=== PATIENT | female | born 1935 | race Caucasian/White ===

== ENCOUNTER 2019-05-07 18:03 | Emergency (ER) | payer MEDICARE ==
[~2019-05-07] VITALS: Ht 144.8 cm; Wt 47.2 kg
[2019-05-07 18:34] LABS: BASOPHILS # (AUTO) 0.1 /CMM (0.0-0.2); BASOPHILS % (AUTO) 0.6 % (0.0-2.0); EOSINOPHILS % (AUTO) 0.2 % (0.0-6.0); HEMATOCRIT 34 % (33-45); HEMOGLOBIN 11.4 g/dL (11.5-14.8); LYMPHOCYTES # (AUTO) 1.4 /CMM (0.8-4.8); LYMPHOCYTES % (AUTO) 12.2 % (20.0-44.0); MEAN CORPUSCULAR HGB CONC 34 g/dl (31.0-36.0); MEAN CORPUSCULAR VOLUME 95 fL (82-100); MONOCYTES # (AUTO) 0.8 /CMM (0.1-1.30); MONOCYTES % (AUTO) 6.7 % (2.0-12.0); NEUTROPHILS # (AUTO) 9.3 /CMM (1.8-8.9); NEUTROPHILS % (AUTO) 80.3 % (43.0-81.0); PLATELET COUNT (AUTO) 313 /CMM (150-450); RED BLOOD CELL COUNT(AUTO) 3.59 MIL/uL (4.0-5.2); WHITE BLOOD COUNT (AUTO) 11.6 K/uL (4.3-11.0)
[2019-05-07 19:05] LABS: CALCIUM, SERUM 9.1 mg/dL (8.5-10.1); CREATININE 0.8 mg/dL (0.6-1.3); POTASSIUM 4.1 mmol/L (3.5-5.1)
[2019-05-07] MEDS ORDERED: IBUPROFEN 400 MG TABLET PO ONE (20:30)
[2019-05-07] MEDS ORDERED: HYDROCODONE/APAP 5/325MG 1 EACH TABLET PO ONE (20:30)
[2019-05-07] MEDS ORDERED: IBUPROFEN 400 MG TABLET ONE (20:31)
[2019-05-07] MEDS ORDERED: HYDROCODONE/APAP 5/325MG 1 EACH TABLET ONE (20:31)
--- NOTE | 2019-05-07 21:24 | NUR ---
PATIENT DISCHARGED HOME IN STABLE CONDITION. -SOB NOTED. AMBULATORY W/WALKER. DOES NOT COMPLAIN OF PAIN AT THIS TIME.
[2019-05-07 21:29] VITALS: BP 122/77
== END 2019-05-07 21:30 | disposition home or self-care (01) ==
LOC: ER 18:08
DX: M54.5 Low back pain (principal); I10 Essential (primary) hypertension; E78.5 Hyperlipidemia, unspecified; F32.9 Major depressive disorder, single episode, unspecified; W01.0XXA Fall on same level from slipping, tripping and stumbling without subsequent striking against object, initial encounter; Y93.89 Activity, other specified; Y92.89 Other specified places as the place of occurrence of the external cause; Y99.8 Other external cause status
CPT/HCPCS: 36415; 72110-TC; 72170-TC; 80048-TC; 85025-TC

== ENCOUNTER 2019-06-05 05:46 | Inpatient (IN) | payer MEDICARE ==
[~2019-06-05] VITALS: Ht 152.4 cm; Wt 49.9 kg
--- NOTE | 2019-06-05 06:43 | NUR ---
SESAR FROM HOME WITH SON TO ER BED 4. AAOX4. NO RESP DISTRESS NOTED. [place] C/O L LATERAL KNEE PAIN. PER SON, PT HAD A FALL BACK IN DECEMEBER AND SINCE THEN SHE HSA BEEN HAVING PAIN AT THAT LOCATION. PT WENT TO HER MD AND RECEIVED A SHOT ON THE KNEE OF TRAUMEELZEEL/TORADOL. ROM NOTED LIMITED D/T PAIN. PAIN IS RATE AT 5/10. AWAITING MD FOR EVAL.
--- NOTE | 2019-06-05 06:56 | NUR ---
DR. CURRY AT THE BED SIDE
[2019-06-05] MEDS ORDERED: KETOROLAC TROMETHAMINE INJ 30 MG/ML VIAL ONE (07:16)
[2019-06-05] MEDS ORDERED: HYDROCODONE/APAP 5/325MG 1 EACH TABLET ONE (07:16)
[2019-06-05] MEDS ORDERED: HYDROCODONE/APAP 5/325MG 1 EACH TABLET PO ONE (07:30)
[2019-06-05] MEDS ORDERED: KETOROLAC TROMETHAMINE INJ 30 MG/ML VIAL IM ONE (07:30)
--- NOTE | 2019-06-05 09:17 | NUR ---
PAGED [facility].
--- NOTE | 2019-06-05 09:27 | NUR ---
CALLED NURSING SUP FOR M/S BED.
[2019-06-05 09:34] LABS: BASOPHILS % (AUTO) 0.3 % (0.0-2.0); EOSINOPHILS % (AUTO) 0.1 % (0.0-6.0); HEMATOCRIT 32 % (33-45); HEMOGLOBIN 10.7 g/dL (11.5-14.8); LYMPHOCYTES # (AUTO) 1.2 /CMM (0.8-4.8); LYMPHOCYTES % (AUTO) 9.5 % (20.0-44.0); MEAN CORPUSCULAR HGB CONC 33 g/dl (31.0-36.0); MEAN CORPUSCULAR VOLUME 96 fL (82-100); MONOCYTES # (AUTO) 1.3 /CMM (0.1-1.30); MONOCYTES % (AUTO) 10.5 % (2.0-12.0); NEUTROPHILS # (AUTO) 10.1 /CMM (1.8-8.9); NEUTROPHILS % (AUTO) 79.6 % (43.0-81.0); PLATELET COUNT (AUTO) 315 /CMM (150-450); RED BLOOD CELL COUNT(AUTO) 3.34 MIL/uL (4.0-5.2); WHITE BLOOD COUNT (AUTO) 12.7 K/uL (4.3-11.0)
[2019-06-05] MEDS ORDERED: VENL37.591 PO (09:38)
[2019-06-05] MEDS ORDERED: SIMV-49 PO (09:38)
[2019-06-05] MEDS ORDERED: ATEN25TA PO (09:38)
[2019-06-05] MEDS ORDERED: CITA20TA16 PO (09:38)
[2019-06-05 09:41] LABS: CALCIUM, SERUM 9.3 mg/dL (8.5-10.1); CREATININE 0.7 mg/dL (0.6-1.3); POTASSIUM 3.1 mmol/L (3.5-5.1)
--- NOTE | 2019-06-05 11:06 | NUR ---
REPORT GIVEN TO ARMANDO SOLO FOR EMILY.
[2019-06-05] MEDS ORDERED: ONDANSETRON HCL/PF 4 MG/2 ML VIAL IVP PRN (11:30)
[2019-06-05] MEDS ORDERED: MAGNESIUM HYDROXIDE 30 ML UDC PO PRN (11:30)
[2019-06-05] MEDS ORDERED: MAG HYDROX/AL HYDROX/SIMETH 30 ML UDC PO PRN (11:30)
[2019-06-05] MEDS ORDERED: ZOLPIDEM TARTRATE 5 MG TABLET PO PRN (11:30)
[2019-06-05] MEDS ORDERED: Z GUARD REMEDY 2 OZ OINT TP PRN (11:30)
[2019-06-05] MEDS ORDERED: ACETAMINOPHEN 325 MG TABLET PO PRN (11:30)
--- NOTE | 2019-06-05 11:36 | NUR ---
M/S RN NOTES PATIENT RECEIVED AWAKE, ALERT AND ORIENTED X4, FAMILY AT BEDSIDE. PATIENT IN NO RESPIRATORY DISTRESS, C/O PAIN ON THE LT KNEE BUT TOLERABLE AT THIS TIME WITH INACTIVITY. PATIENT'S SKIN WARM TO TOUCH, IV ACCESS SITE INTACT AND PATENT. SKIN ASSESSED NO SKIN BREAKDOWN. PATIENT'S BELONGINGS ACCOUNTED FOR, BELONGINGS LIST SIGNED AND PUT IN CHART. BED ON LOWEST LOCKED POSITION, CALL LIGHT WITHIN REACH. ADMISSION ORDERS WILL CARRY OUT. WILL CONTINUE TO MONITOR.
[2019-06-05 12:00] VITALS: BP 122/60
[2019-06-05] MEDS: HYDROCODONE/APAP 5/325MG 1 EACH TABLET PO PRN (13:59)
[2019-06-05 16:00] VITALS: BP 101/65
--- NOTE | 2019-06-05 18:45 | NUR ---
M/S RN NOTES PATIENT RESTING IN BED, NO RESPIRATORY DISTRESS, NO C/O PAIN AT THIS TIME. PATIENT'S SKIN WARM TO TOUCH, IV ACCESS SITE INTACT AND PATENT. PATIENT'S NEEDS ATTENDED, BED ON LOWEST LOCKED POSITION, CALL LIGHT WITHIN REACH. WILL ENDORSE TO ONCOMING NURSE.
--- NOTE | 2019-06-05 19:30 | NUR ---
MS RN OPENING NOTES PATIENT ASLEEP UPON ARRIVAL, EASY TO AWAKEN. A/O X 3. ON ROOM AIR. NO S/S OF ACUTE RESPIRATORY DISTRESS AND NO COMPLAINTS OF PAIN AT THIS TIME. IV PRESENT ON RIGHT FOREARM, SIZE 24, INTACT & PATENT, HEP LOCKED. PATIENT ABLE TO VERBALIZE NEEDS. BED LOCKED, SEMI-LANDIN'S POSITION, SIDE RAILS X2, CALL LIGHT WITHIN REACH. WILL CONTINUE TO ENDORSE.
[2019-06-05 20:00] VITALS: BP 107/45
--- NOTE | 2019-06-05 20:30 | NUR ---
MS RN NOTES IV KCL 10MEQ/50ML NOT ADMINISTERED DUE TO UNAVAILABILITY OF IV POLE & PUMP
[2019-06-05] MEDS: POTASSIUM CL. PREMIX PERIPHER. 50 ML IV SCH (22:16)
--- NOTE | 2019-06-05 22:16 | NUR ---
MS RN NOTE IV KCL 10MEQ/50ML STARTED ON RIGHT AC, RUNNING 50ML/HR
--- NOTE | 2019-06-05 22:45 | NUR ---
MS RN NOTES PATIENT COMPLAINING OF BURNING SENSATION ON IV SITE. DECREASED KCL RATE TO 35 ML/HR.
[2019-06-06] MEDS: POTASSIUM CL. PREMIX PERIPHER. 50 ML IV SCH ×3 (01:05→05:14)
[2019-06-06] MEDS: HYDROCODONE/APAP 5/325MG 1 EACH TABLET PO PRN ×2 (02:35→17:42)
--- NOTE | 2019-06-06 02:35 | NUR ---
MS RN NOTES PATIENT COMPLAINING OF PAIN NEAR HER IV SITE ON THE LEFT ARM WHERE IV KCL 10MEQ/50ML IS RUNNING, RATED 7/10. PER PATIENT'S REQUEST ADMINISTERED PRN NORCO 5/325. VITAL SIGNS - BP: 135/72 HR: 74 RR: 18. CALL LIGHT WITHIN REACH. WILL CONTINUE TO MONITOR.
--- NOTE | 2019-06-06 06:35 | NUR ---
MS RN CLOSING NOTES PATIENT AWAKE AND RESTING IN BED. A/O X4. ON ROOM AIR. NO S/S OF ACUTE RESPIRATORY DISTRESS. PATIENT COMPLAINS OF PAIN UPON REPOSITIONING IN BED. IV PRESENT ON RIGHT AC, SIZE 20, INTACT & PATENT, HEP LOCKED; IV ON LEFT AC, SIZE 22, INTACT & PATENT, HEP LOCKED. BED LOCKED, LOW-LANDIN'S POSITION, SIDE RAILS X2, CALL LIGHT WITHIN REACH. WILL ENDORSE TO DAY SHIFT NURSE TO FOLLOW PLAN OF CARE.
[2019-06-06 07:02] LABS: BASOPHILS % (AUTO) 0.4 % (0.0-2.0); HEMATOCRIT 31 % (33-45); HEMOGLOBIN 10.6 g/dL (11.5-14.8); LYMPHOCYTES # (AUTO) 1.9 /CMM (0.8-4.8); MEAN CORPUSCULAR HGB CONC 34 g/dl (31.0-36.0); MEAN CORPUSCULAR VOLUME 97 fL (82-100); MONOCYTES % (AUTO) 11.4 % (2.0-12.0); NEUTROPHILS # (AUTO) 5.9 /CMM (1.8-8.9); NEUTROPHILS % (AUTO) 66.2 % (43.0-81.0); PLATELET COUNT (AUTO) 299 /CMM (150-450); WHITE BLOOD COUNT (AUTO) 8.9 K/uL (4.3-11.0)
[2019-06-06 07:06] LABS: BILIRUBIN,TOTAL 0.4 mg/dL (0.2-1.0); CALCIUM, SERUM 8.5 mg/dL (8.5-10.1); CREATININE 0.7 mg/dL (0.6-1.3); MAGNESIUM 1.9 mg/dL (1.8-2.4); PHOSPHORUS 3.2 mg/dL (2.5-4.9); POTASSIUM 3.8 mmol/L (3.5-5.1); TOTAL PROTEIN, SERUM 6.1 g/dL (6.4-8.2)
--- NOTE | 2019-06-06 07:30 | NUR ---
MS RN OPENING NOTES RECEIVED PATIENT IN BED RESTING COMFORTABLY IN MODERATE HIGH BACK REST. ALERT AND ORIENTED X 3. ABLE TO MAKE NEEDS KNOWN. NO SIGNS OF DISTRESS NOTED AT THIS TIME. IV ACCESS ON LEFT AC #22, RIGHT AC#20. PATENT AND INTACT, SAFETY MEASURES IN PLACE, BED IN LOW AND LOCKED POSITION. CALL LIGHT WITH IN EASY REACH. WILL CONTINUE TO MONITOR ACCORDINGLY
[2019-06-06 08:00] VITALS: BP 136/71
[2019-06-06 16:00] VITALS: BP 142/85
--- NOTE | 2019-06-06 18:34 | NUR ---
MS RN CLOSING NOTES PATIENT IN BED RESTING COMFORTABLY IN MODERATE HIGH BACK REST. ALERT AND ORIENTED X 3. ABLE TO MAKE NEEDS KNOWN. NO SIGNS OF DISTRESS NOTED THROUGHOUT THE SHIFT. IV ACCESS ON LEFT AC #22, RIGHT AC#20. PATENT AND INTACT, SAFETY MEASURES IN PLACE, BED IN LOW AND LOCKED POSITION. CALL LIGHT WITH IN EASY REACH. WILL ENDORSE TO DAIRY MANUFACTURING TECHNOLOGIST NURSE FOR EMILY.
--- NOTE | 2019-06-06 19:30 | NUR ---
MS RN OPENING NOTES PATIENT AWAKE IN BED UPON ARRIVAL. FAMILY PRESENT AT THE BEDSIDE. A/O X4. ON ROOM AIR. NO COMPLAINT OF PAIN OR SOB AT THIS TIME. IV PRESENT ON LEFT AC, SIZE 22 & RIGHT AC, SIZE 20, BOTH INTACT & PATENT, HEP LOCKED. BED LOCKED, SIDE RAILS X2, CALL LIGHT WITHIN REACH. WILL CONTINUE TO MONITOR.
[2019-06-06 20:00] VITALS: BP 116/69
[2019-06-07 00:35] VITALS: BP 135/79
--- NOTE | 2019-06-07 00:50 | NUR ---
MS RN NOTES FOUND PATIENT ON HER KNEES AT THE BEDSIDE AT 0030. CHARGE NURSE NOTIFIED. PATIENT DENIES HITTING HER HEAD; STATES ONLY SLIGHT LEFT KNEE PAIN. PATIENT DISORIENTED AND NEEDED VERBAL REORIENTATION TO TIME AND DAY. NO WOUNDS AND/OR INJURIES FOUND ON PATIENT. TASHI ROGERSRETE NOTIFIED AT 0045. LEFT KNEE X-RAY ORDERED. VITAL SIGNS - BP: 135/79 HR: 105 RR: 18 SPO2: 96 ON ROOM AIR TEMP: 98.8. BED LOCKED, ALARM ON, SIDE RAILS X2, SEMI-LANDIN'S POSITION, CALL LIGHT WITHIN REACH. WILL CONTINUE TO MONITOR PATIENT AT THE BEDSIDE.
--- NOTE | 2019-06-07 06:55 | NUR ---
MS RN CLOSING NOTES PATIENT AWAKE AND RESTING IN BED. A/O X 3-4. ON ROOM AIR. NO COMPLAINTS OF SOB OR PAIN AT THIS TIME. IV PRESENT ON LEFT AC, SIZE 22 & RIGHT AC, SIZE 20, BOTH HEP LOCKED. BED LOCKED, ALARM ON, SIDE RAILS X2, CALL LIGHT WITHIN REACH. WILL ENDORSE TO DAY SHIFT NURSE TO FOLLOW PLAN OF CARE.
[2019-06-07] MEDS: HYDROCODONE/APAP 5/325MG 1 EACH TABLET PO PRN (07:10)
--- NOTE | 2019-06-07 07:15 | NUR ---
MS RN NOTES PATIENT IN BED ALERT ORIENTED X 3. NO ACUTE DISTRESS NOTED. BREATHING UNLABORED. NO SOB NOTED. IV ACCESS PATENT AND INTACT, NO REDNESS, NO SWELLING. SAFETY MEASURES IN PLACE. CALL LIGHT WITHIN REACH. WILL CONTINUE TO MONITOR ACCORDINGLY.
[2019-06-07 08:00] VITALS: BP 120/79
[2019-06-07] MEDS: CITALOPRAM HYDROBROMIDE 20 MG TABLET PO SCH (08:58)
[2019-06-07] MEDS: ATENOLOL 25 MG TABLET PO SCH (08:58)
[2019-06-07] MEDS: VENLAFAXINE XR 37.5 MG CAP.SR.24H PO SCH (08:58)
[2019-06-07 16:00] VITALS: BP 129/66
[2019-06-07] MEDS: SIMVASTATIN 20 MG TABLET PO SCH (17:20)
--- NOTE | 2019-06-07 19:00 | NUR ---
MS RN NOTES PATIENT IN BED ALERT ORIENTED X 3. NO ACUTE DISTRESS NOTED. BREATHING UNLABORED. NO SOB NOTED. IV ACCESS PATENT AND INTACT, NO REDNESS, NO SWELLING. NEEDS ATTENDED AND ANTICIPATED. SAFETY MEASURES IN PLACE. CALL LIGHT WITHIN REACH. WILL ENDORSE TO NIGHT NURSE FOR CONTINUITY OF CARE.
[2019-06-07 20:00] VITALS: BP 132/65
--- NOTE | 2019-06-07 20:46 | NUR ---
MS RN OPENING NOTES PATIENT RECEIVED RESTING IN BED A/O X 3. STABLE ON RA WITH BREATHING EVEN AND UNLABORED, NO SOB NOTED. NO SIGNS OF ACUTE DISTRESS. NO CURRENT COMPLAINTS OF PAIN OR DISCOMFORT. IV LOCATED ON L AC #22 AND r AC #20 SL. SAFETY PRECAUTIONS IN PLACE WITH BED IN LOWEST POSITION, CALL LIGHT WITHIN REACH, BREAKS ON, AND SIDE RAILS UP X2. WILL CONTINUE TO MONITOR.
--- NOTE | 2019-06-08 06:35 | NUR ---
MS RN CLOSING NOTES PATIENT CURRENTLY IN BED SLEEPING, A/O X 3. STABLE ON RA WITH BREATHING EVEN AND UNLABORED, NO SOB NOTED. NO SIGNS OF ACUTE DISTRESS. NO CURRENT COMPLAINTS OF PAIN OR DISCOMFORT/ IV LOCATED ON L AC AND R AC BOTH S/L. PATIENT WAS KEPT CLEAN AND DRY THROUGHOUT THE NIGHT. ALL NEEDS ATTENDED TO. SAFETY PRECAUTIONS IN PLACE WITH BED IN LOWEST POSITION, BREAKS ON, SIDE RAILS UP X2, AND CALL LIGHT WITHIN REACH. WILL ENDORSE TO ONCOMING SHIFT ABOUT EMILY.
[2019-06-08 08:00] VITALS: BP 142/82
--- NOTE | 2019-06-08 08:00 | NUR ---
RN NOTES RECEIVED PATIENT IN THE BED A/PX3, ROOM AIR, NO ACUTR RESPIRATORY DISTRESS, PATIENT WAS COMPLANING OF PAIN ON LEFT KNEE , BUT REFUSED PAIN MEDICATION AT THIS TIME, ALSO WAS COMPLAINING OF NERVOUSNESS. ADMINISTERED SCHEDULED MEDICATION, V/S STABLE. PATIENT USING DIAPER, IV ACCESS ON LEFT AC AREA INTACT, CALL LIGHT WITHIN TO REACH. CONTINUED MONITORING.
[2019-06-08] MEDS: ATENOLOL 25 MG TABLET PO SCH (10:26)
[2019-06-08] MEDS: VENLAFAXINE XR 37.5 MG CAP.SR.24H PO SCH (10:26)
[2019-06-08] MEDS: CITALOPRAM HYDROBROMIDE 20 MG TABLET PO SCH (10:26)
--- NOTE | 2019-06-08 11:00 | NUR ---
RN NOTES PATIENT SEEN [facility] PT, PATIENT REFUSED TO WALK BECAUSE OF PAIN, AND UNSTABLE TO STAND UP.
[2019-06-08 16:00] VITALS: BP 138/81
[2019-06-08] MEDS: SIMVASTATIN 20 MG TABLET PO SCH (17:17)
--- NOTE | 2019-06-08 18:00 | NUR ---
RN NOTES PATIENT IN THE BED EATING DINNER, ADMINISTERED SCHEDULED MEDICATION, V/S STABLE, REFUSED PAIN MEDICATION. CALL LIGHT WITHIN TO REACH. ENDORSED ONCOMING NURSE FOLLOW PLAN OF CARE.
--- NOTE | 2019-06-08 19:00 | NUR ---
ARMANDO cullen opening notes Received Pt from morning nurse. Pt is alert and orientedX3. Pt is resting in bed comfortably. Respiration is normal. no SOB. No S/S of distress noted. Peripheral IV sites at LAC# 22 is clean, intact, patent and SL and IV sites at RAC# 20 is clean, intact, patent and SL. Safety precautions is maintained. Bed at low position, brakes locked, side rails upX3 and call light is within reach. Will endorse to morning nurse for EMILY. Addendum: 06/09/19 at 0814 by OLINDA NUNO RN Will continue to monitor
[2019-06-08 20:00] VITALS: BP 122/79
[2019-06-08] MEDS: HYDROCODONE/APAP 5/325MG 1 EACH TABLET PO PRN ×2 (20:16)
[2019-06-08 20:32] VITALS: BP 122/79
--- NOTE | 2019-06-09 06:40 | NUR ---
RN medsurg closing notes Pt is resting in bed comfortably. Respiration is normal. No SOB. No S/S of distress noted. Peripheral IV sites is clean, intact and patent. VS is stable. Kept Pt clean, dry and comfortable. All needs met and attended. Safety precautions is maintained. Bed at low position, brakes locked, side rails upX3 and call light is within reach. Will endorse to morning nurse for EMILY.
[2019-06-09 08:00] VITALS: BP 134/67
--- NOTE | 2019-06-09 08:00 | NUR ---
RN NOTES RECEIVED PATIENT IN THE BED A/OX3, ROOM AIR, NO ACUTE RESPIRATORY DISTRESS, PATIENT WAS COMPLAINING OF PAIN ON LEFT KNEE 6/10 PER PAIN SCALE. ADMINISTERED SCHEDULED MEDICATION, V/S STABLE. PATIENT USING DIAPER, IV ACCESS ON LEFT AC AREA INTACT, CALL LIGHT WITHIN TO REACH. CONTINUED MONITORING.
[2019-06-09 08:55] VITALS: BP 134/67
[2019-06-09] MEDS: ATENOLOL 25 MG TABLET PO SCH (08:55)
[2019-06-09] MEDS: VENLAFAXINE XR 37.5 MG CAP.SR.24H PO SCH (08:56)
[2019-06-09] MEDS: HYDROCODONE/APAP 5/325MG 1 EACH TABLET PO PRN (08:56)
[2019-06-09] MEDS: CITALOPRAM HYDROBROMIDE 20 MG TABLET PO SCH (08:56)
--- NOTE | 2019-06-09 08:56 | NUR ---
RN NOTES ADMINISTERED NARCO 5/325 MG PO PRN FOR LEFT KNEE PAIN 10/28 PER PATIENT REQUEST, V/S TAKEN BP 134/67, P-100, R-18. CONTINUED MONITORING.
[2019-06-09] MEDS ORDERED: CELECOXIB 100 MG CAPSULE PO SCH (09:00)
--- NOTE | 2019-06-09 10:00 | NUR ---
RN NOTES PATIENT WILL DISCHARGE TO THE SNF SHORT AMOUNT OF TIME FOR PT, PER HOSPITALIST ORDER.
--- NOTE | 2019-06-09 16:22 | NUR ---
automotive internet sales consultant notes PATIENT DISCHARGE AT THIS TIME GOING SNF FOR SHORT AMOUNT OF TIME FOR PT. PATIENT A/O X3 WITH CONFUSION, REFUSED PAIN AT THIS TIME. NO ACUTE RESPIRATORY DISTRESS, V/S STABLE. MED RECONCILIATION AND DISCHARGE ORDER REVIEWED AND EXPLAINED TO PATIENT AND FAMILY. REPORT GIVEN SNF ARMANDO MAY. RN VERBALIZED UNDERSTANDING, BELONGING WITH THE PATIENT . PATIENT SIGN PAPERWORK. PATIENT [facility] BY AMBULANCE. FAMILY NEXT TO THE BED.
== END 2019-06-09 17:29 | DRG 558 ==
LOC: ER 05:46 → MED 11:02
PROVIDERS: ADMIT Internal Medicine; ATTEND Internal Medicine
DX: M65.9 Synovitis and tenosynovitis, unspecified (principal); M17.12 Unilateral primary osteoarthritis, left knee; D63.8 Anemia in other chronic diseases classified elsewhere; Y92.9 Unspecified place or not applicable; E78.5 Hyperlipidemia, unspecified; F41.9 Anxiety disorder, unspecified; F32.9 Major depressive disorder, single episode, unspecified; E87.6 Hypokalemia; I10 Essential (primary) hypertension; Z90.49 Acquired absence of other specified parts of digestive tract; Z79.899 Other long term (current) drug therapy; D72.829 Elevated white blood cell count, unspecified
CPT/HCPCS: 36415; 73564-TC; 73700-TC; 73721-TC; 80048-TC; 80053-TC; 80061-TC; 83735-TC; 84100-TC; 85025-TC; 87081-TC; 97110-TC; 97116-TC; 97530-TC; G0378; J1885; J3480; J7030

== ENCOUNTER 2019-06-17 02:42 | Emergency (ER) | payer MEDICARE ==
[~2019-06-17] VITALS: Ht 149.9 cm; Wt 46.7 kg
[~2019-06-17 02:42] MED LIST: ATEN25TA PO; CITA20TA16 PO; SIMV-49 PO; VENL37.591 PO
--- NOTE | 2019-06-17 03:02 | NUR ---
BIB automotive accessory installer FOR EVALUATION OF L EYEBROW LACERATION AND L FACIAL PAIN S/P "FOUND ON THE FLOOR 30 MIN SCIENCE LIAISON". PT DOES NOT REMEMBER WHAT HAPPENED. A, OX2. -N/V . WILL CONT TO MONITOR ,
--- NOTE | 2019-06-17 03:22 | NUR ---
DR HYMAN AT THE BED SIDE
[2019-06-17] MEDS ORDERED: LIDOCAINE 1%-EPI 1:100,000 20 ML VIAL ONE (03:29)
[2019-06-17] MEDS ORDERED: SODIUM BICARBONATE 5 ML VIAL ONE (03:29)
[2019-06-17] MEDS ORDERED: CEPHALEXIN MONOHYDRATE 500 MG CAPSULE PO ONE ×2 (04:57→05:00)
[2019-06-17] MEDS ORDERED: TDAP [DIPH/PERTUSSIS/TET] 0.5 ML VIAL IM ONE ×2 (04:57→06:00)
--- NOTE | 2019-06-17 05:31 | NUR ---
CALLED [facility] AND ARRANGED TRANSPORTATION BACK TO THE [facility]. ETA [phone]
--- NOTE | 2019-06-17 05:35 | NUR ---
CALLED SNF AND GAVE REPORT RE PT'S ETA
[2019-06-17] MEDS ORDERED: ACETAMINOPHEN ES 500 MG TABLET ONE (06:23)
[2019-06-17] MEDS ORDERED: ACETAMINOPHEN ES 500 MG TABLET PO ONE (06:30)
--- NOTE | 2019-06-17 07:02 | NUR ---
REPORT GIVEN TO photoengraver FROM [facility]. PT WAS D/C'D BACK TO THE FACILITY IN STABLE CONDITION. D/C PAPERS AND RX GIVEN TO THE PT W/ UNDERSTANDING. PT WAS PICKED UP VIA [facility] IN STABLE CONDITION .
[2019-06-17 07:04] VITALS: BP 148/85
== END 2019-06-17 07:04 | disposition home or self-care (01) ==
LOC: ER 02:43
DX: S01.81XA Laceration without foreign body of other part of head, initial encounter (principal); I10 Essential (primary) hypertension; E78.5 Hyperlipidemia, unspecified; F32.9 Major depressive disorder, single episode, unspecified; Z90.49 Acquired absence of other specified parts of digestive tract; Z79.899 Other long term (current) drug therapy; W06.XXXA Fall from bed, initial encounter; Y93.89 Activity, other specified; Y92.89 Other specified places as the place of occurrence of the external cause; Y99.8 Other external cause status
CPT/HCPCS: 12011; 70450; 90471; 90715; 99284; A6403; J3490 ×2

== ENCOUNTER 2020-11-23 10:25 | Outpatient (CLI) | payer MEDICARE | END 2020-11-23 23:59 | disposition home or self-care (01) | LOC: WOU 10:25 | PROVIDERS: ATTEND Podiatrist Foot & Ankle Surgery | DX: L60.2 Onychogryphosis (principal); B35.1 Tinea unguium; R60.0 Localized edema; Z79.82 Long term (current) use of aspirin | CPT/HCPCS: G0463 ==

== ENCOUNTER 2023-06-12 10:01 | Inpatient (IN) | payer MEDICARE ==
[~2023-06-12] VITALS: Ht 154.9 cm; Wt 45.8 kg
[~2023-06-12 10:01] MED LIST changes: +AMOX-430 PO; +DOCU-141 PO; +SENN-18 PO; +VENL150C58 PO; -VENL37.591 PO
[2023-06-12] MEDS: IV NS 0.9% 1,000 ML BAG IV ONE (10:26)
[2023-06-12 11:06] LABS: CALCIUM, SERUM 8.8 mg/dL (8.5-10.1); CARBON DIOXIDE 22 mmol/L (21-32); CHLORIDE 99 mmol/L (98-107); CREATININE 0.8 mg/dL (0.6-1.3); GLUCOSE 128 mg/dL (74-106); PARTIAL THROMBOPLASTIN TIME 26.3 SEC (24.3-34.3); POTASSIUM 3.7 mmol/L (3.5-5.1); PROTHROMBIN TIME 10.6 SECS (9.2-11.1); SODIUM SERUM 131 mmol/L (136-145); UREA NITROGEN, BLOOD 14 mg/dL (7-18)
[2023-06-12 11:13] LABS: ALANINE AMINOTRANSFERASE 72 U/L (12-78); ALBUMIN 3.4 g/dL (3.4-5.0); ALKALINE PHOSPHATASE 62 U/L (46-116); ASPARTATE AMINOTRANSFERASE 85 U/L (15-37); BILIRUBIN,DIRECT 0.1 mg/dL (0.0-0.2); BILIRUBIN,TOTAL 0.3 mg/dL (0.2-1.0); TOTAL PROTEIN, SERUM 7.2 g/dL (6.4-8.2)
[2023-06-12 11:24] LABS: BASOPHILS % (AUTO) 0.5 % (0.0-2.0); HEMATOCRIT 35 % (33-45); HEMOGLOBIN 12.1 g/dL (11.5-14.8); LYMPHOCYTES # (AUTO) 1.3 K/uL (0.8-4.8); MEAN CORPUSCULAR HEMOGLOBIN 32 PG (26.0-33.0); MEAN CORPUSCULAR HGB CONC 34 g/dl (31.0-36.0); MEAN CORPUSCULAR VOLUME 93 fL (82-100); MONOCYTES # (AUTO) 0.6 K/uL (0.1-1.30); MONOCYTES % (AUTO) 9.4 % (2.0-12.0); NEUTROPHILS # (AUTO) 4.1 K/uL (1.8-8.9); NEUTROPHILS % (AUTO) 68.1 % (43.0-81.0); PLATELET COUNT (AUTO) 229 K/uL (150-450); RED BLOOD CELL COUNT(AUTO) 3.79 MIL/uL (4.0-5.2); RED CELL DISTRIBUTION WIDTH 13.4 % (11.5-15.0)
[2023-06-12] MEDS ORDERED: DOCU100C36 PO (12:58)
[2023-06-12] MEDS ORDERED: PAXLOVID PO (12:58)
[2023-06-12 13:01] LABS: APPEARANCE,URINE SLIGHTLY CLOUDY (CLEAR); BILIRUBIN,URINE NEGATIVE (NEGATIVE); BLOOD, URINE 1+ Ery/uL (NEGATIVE); COLOR,URINE YELLOW (YELLOW); KETONES,URINE NEGATIVE (NEGATIVE); LEUKOCYTE ESTERASE ,URINE NEGATIVE (NEGATIVE); NITRITE, URINE NEGATIVE (NEGATIVE); PROTEIN,URINE 1+ mg/dl (NEGATIVE); UGLUCOSE NEGATIVE (NEGATIVE)
[2023-06-12 13:10] LABS: ADD URINE CULTURE NO; BACTERIA,URINE Rare /HPF (None Seen); SQUAMOUS EPITHELIAL CELL,UR Moderate /HPF (None Seen); WBC,URINE 0-2 /HPF (0-3)
[2023-06-12] MEDS ORDERED: MAG HYDROX/AL HYDROX/SIMETH 30 ML UDC PO PRN (15:30)
[2023-06-12] MEDS ORDERED: ACETAMINOPHEN 325 MG TABLET PO PRN (15:30)
[2023-06-12] MEDS ORDERED: Z GUARD REMEDY 4 OZ OINT TP PRN (15:30)
[2023-06-12] MEDS ORDERED: MAGNESIUM HYDROXIDE 30 ML UDC PO PRN (15:30)
[2023-06-12] MEDS ORDERED: ONDANSETRON HCL/PF 4 MG/2 ML VIAL IVP PRN (15:30)
[2023-06-12] MEDS: DOCUSATE SODIUM 100 MG CAPSULE PO SCH (17:41)
[2023-06-12] MEDS: ENOXAPARIN SODIUM 30 MG/0.3 ML DISP.SYRIN SQ SCH (17:43)
[2023-06-12] MEDS: IV NS 0.9% 1,000 ML IV PRN (19:37)
[2023-06-12 20:00] VITALS: BP 104/49; TEMP 97.6; O2SAT 92
[2023-06-13] VITALS: BP 105/59; TEMP 97.9; O2SAT 94
[2023-06-13 04:00] VITALS: BP 96/52; TEMP 98.2; O2SAT 97
[2023-06-13 07:10] LABS: BASOPHILS % (AUTO) 0.7 % (0.0-2.0); EOSINOPHILS % (AUTO) 0.2 % (0.0-6.0); HEMATOCRIT 32 % (33-45); HEMOGLOBIN 10.8 g/dL (11.5-14.8); LYMPHOCYTES # (AUTO) 1.4 K/uL (0.8-4.8); LYMPHOCYTES % (AUTO) 35.7 % (20.0-44.0); MEAN CORPUSCULAR HEMOGLOBIN 32 PG (26.0-33.0); MEAN CORPUSCULAR HGB CONC 34 g/dl (31.0-36.0); MEAN CORPUSCULAR VOLUME 94 fL (82-100); MONOCYTES # (AUTO) 0.6 K/uL (0.1-1.30); MONOCYTES % (AUTO) 15.6 % (2.0-12.0); NEUTROPHILS # (AUTO) 1.9 K/uL (1.8-8.9); NEUTROPHILS % (AUTO) 47.8 % (43.0-81.0); PLATELET COUNT (AUTO) 198 K/uL (150-450); RED BLOOD CELL COUNT(AUTO) 3.38 MIL/uL (4.0-5.2); RED CELL DISTRIBUTION WIDTH 13.4 % (11.5-15.0)
[2023-06-13 08:00] VITALS: BP_SYST 101; BP_SYST 107; BP_DIAS 54; BP_DIAS 57; BP_DIAS 67; TEMP 97.9; O2SAT 100; O2SAT 95
[2023-06-13 08:09] LABS: CALCIUM, SERUM 8.3 mg/dL (8.5-10.1); CREATININE 0.6 mg/dL (0.6-1.3); MAGNESIUM 1.9 mg/dL (1.8-2.4); PHOSPHORUS 3.3 mg/dL (2.5-4.9); POTASSIUM 3.1 mmol/L (3.5-5.1)
[2023-06-13] MEDS: VENLAFAXINE XR 150 MG CAP.SR.24H PO SCH (08:24)
[2023-06-13] MEDS: ENSURE ENLIVE 237 ML LIQUID (VANILLA) PO SCH (09:00)
[2023-06-13 09:06] LABS: ANISOCYTOSIS 1+; BASOPHILS % (MANUAL) 0 % (0.0-2.0); EOSINOPHILS % (MANUAL) 1 % (0-4); LYMPHOCYTES % (MANUAL) 28 % (16-48); MONOCYTES % (MANUAL) 16 % (0-11.0); NEUTROPHILS % (MANUAL) 55 (42-76); PLATELET ESTIMATE ADEQUATE
[2023-06-13 12:00] VITALS: BP_SYST 101; BP_SYST 106; BP_DIAS 53; BP_DIAS 67; TEMP 97.9; O2SAT 100
[2023-06-13] MEDS: POTASSIUM CHLORIDE 20 MEQ TAB.PRT.SR PO ONE (13:00)
[2023-06-13] MEDS: POTASSIUM CHLORIDE 20 MEQ POWDER PACKET PO ONE (15:01)
[2023-06-13 16:00] VITALS: BP 114/71; TEMP 97.5; O2SAT 100
[2023-06-13 20:00] VITALS: BP 108/61; TEMP 97.3; O2SAT 100
[2023-06-14] VITALS: BP 106/63; TEMP 97.5; O2SAT 100
[2023-06-14 04:00] VITALS: BP 104/60; TEMP 97.4; O2SAT 100
[2023-06-14 07:51] LABS: THYROID STIMULATING HORMONE 2.086 uIU/mL (0.358-3.74)
[2023-06-14 07:53] LABS: CALCIUM, SERUM 6.8 mg/dL (8.5-10.1); CARBON DIOXIDE 21 mmol/L (21-32); CHLORIDE 103 mmol/L (98-107); CREATININE 0.5 mg/dL (0.6-1.3); GLUCOSE 85 mg/dL (74-106); MAGNESIUM 1.8 mg/dL (1.8-2.4); PHOSPHORUS 3.1 mg/dL (2.5-4.9); POTASSIUM 3.4 mmol/L (3.5-5.1); SODIUM SERUM 134 mmol/L (136-145); UREA NITROGEN, BLOOD 8 mg/dL (7-18)
[2023-06-14 08:00] VITALS: BP 111/49; TEMP 97.6; O2SAT 94
[2023-06-14] MEDS: POTASSIUM CHLORIDE 20 MEQ POWDER PACKET PO SCH (11:07)
[2023-06-14 12:00] VITALS: BP 100/74; TEMP 97.7; O2SAT 96
[2023-06-14 16:00] VITALS: BP 125/58; TEMP 97.9; O2SAT 95
[2023-06-14 20:00] VITALS: BP 108/56; TEMP 98.4; O2SAT 100
[2023-06-15] VITALS: BP 112/62; TEMP 97.1; O2SAT 98
[2023-06-15 04:00] VITALS: BP 107/63; TEMP 97.5; O2SAT 100
[2023-06-15 08:00] VITALS: BP 128/73; TEMP 98.6; O2SAT 100
[2023-06-15 09:18] LABS: BASOPHILS # (AUTO) 0.1 K/uL (0.0-0.2); BASOPHILS % (AUTO) 3.4 % (0.0-2.0); EOSINOPHILS % (AUTO) 0.9 % (0.0-6.0); HEMATOCRIT 35 % (33-45); HEMOGLOBIN 11.8 g/dL (11.5-14.8); LYMPHOCYTES # (AUTO) 0.9 K/uL (0.8-4.8); LYMPHOCYTES % (AUTO) 22.5 % (20.0-44.0); MEAN CORPUSCULAR HEMOGLOBIN 32 PG (26.0-33.0); MEAN CORPUSCULAR HGB CONC 34 g/dl (31.0-36.0); MEAN CORPUSCULAR VOLUME 93 fL (82-100); MONOCYTES # (AUTO) 0.2 K/uL (0.1-1.30); MONOCYTES % (AUTO) 6.4 % (2.0-12.0); NEUTROPHILS # (AUTO) 2.6 K/uL (1.8-8.9); NEUTROPHILS % (AUTO) 66.8 % (43.0-81.0); PLATELET COUNT (AUTO) 254 K/uL (150-450); RED BLOOD CELL COUNT(AUTO) 3.75 MIL/uL (4.0-5.2); RED CELL DISTRIBUTION WIDTH 13.3 % (11.5-15.0); WHITE BLOOD COUNT (AUTO) 3.9 K/uL (4.3-11.0)
[2023-06-15 09:34] LABS: CALCIUM, SERUM 8.8 mg/dL (8.5-10.1); CARBON DIOXIDE 26 mmol/L (21-32); CHLORIDE 105 mmol/L (98-107); CREATININE 0.6 mg/dL (0.6-1.3); GLUCOSE 83 mg/dL (74-106); POTASSIUM 3.4 mmol/L (3.5-5.1); SODIUM SERUM 139 mmol/L (136-145); UREA NITROGEN, BLOOD 3 mg/dL (7-18)
[2023-06-15] MEDS: POTASSIUM CHLORIDE 20 MEQ TAB.PRT.SR PO ONE (11:32)
[2023-06-15 12:00] VITALS: BP 127/77; TEMP 99.3; O2SAT 100
[2023-06-15] MEDS: dexaMETHasone SOD PHOSPHATE 10 MG/ML VIAL IV SCH (13:49)
== END 2023-06-15 15:00 | disposition home or self-care (01) | DRG 178 ==
LOC: ER 10:03 → TELE1 13:40
PROVIDERS: ADMIT Internal Medicine; ATTEND Internal Medicine
DX: U07.1 COVID-19 (principal); D68.69 Other thrombophilia; E87.1 Hypo-osmolality and hyponatremia; E86.0 Dehydration; I10 Essential (primary) hypertension; E78.5 Hyperlipidemia, unspecified; F03.90 Unspecified dementia, unspecified severity, without behavioral disturbance, psychotic disturbance, mood disturbance, and anxiety; D64.9 Anemia, unspecified; E86.1 Hypovolemia; E87.6 Hypokalemia; Z79.899 Other long term (current) drug therapy; Z74.09 Other reduced mobility; R55 Syncope and collapse; F09 Unspecified mental disorder due to known physiological condition
CPT/HCPCS: 36415; 71045-TC; 71250-TC; 80048-TC; 80076-TC; 81001; 82962-TC; 83735-TC; 84100-TC; 84443-TC; 84484-TC; 84550-TC; 85025-TC; 85378-TC; 85730-TC; 86140-TC; 93307-TC; A4223; G0378; J1100; J1650; J7030

== ENCOUNTER 2023-08-29 11:11 | Inpatient (IN) | payer MEDICARE, OTHER ==
[~2023-08-29] VITALS: Ht 154.9 cm; Wt 43.5 kg
[~2023-08-29 11:11] MED LIST changes: -AMOX-430 PO; -CITA20TA16 PO; -DOCU-141 PO; +DOCU100C36 PO; -SENN-18 PO; -SIMV-49 PO
[2023-08-29 11:48] LABS: BASOPHILS # (AUTO) 0.3 K/uL (0.0-0.2); BASOPHILS % (AUTO) 2.8 % (0.0-2.0); EOSINOPHILS # (AUTO) 0.2 K/uL (0.0-0.7); EOSINOPHILS % (AUTO) 1.3 % (0.0-6.0); HEMATOCRIT 42 % (33-45); HEMOGLOBIN 13.9 g/dL (11.5-14.8); LYMPHOCYTES % (AUTO) 8.3 % (20.0-44.0); MEAN CORPUSCULAR HEMOGLOBIN 31 PG (26.0-33.0); MEAN CORPUSCULAR HGB CONC 33 g/dl (31.0-36.0); MEAN CORPUSCULAR VOLUME 94 fL (82-100); MONOCYTES # (AUTO) 1.1 K/uL (0.1-1.30); MONOCYTES % (AUTO) 8.6 % (2.0-12.0); NEUTROPHILS # (AUTO) 9.7 K/uL (1.8-8.9); PLATELET COUNT (AUTO) 414 K/uL (150-450); RED BLOOD CELL COUNT(AUTO) 4.49 MIL/uL (4.0-5.2); RED CELL DISTRIBUTION WIDTH 13.6 % (11.5-15.0); WHITE BLOOD COUNT (AUTO) 12.3 K/uL (4.3-11.0)
[2023-08-29 11:58] LABS: CALCIUM, SERUM 9.3 mg/dL (8.5-10.1); CARBON DIOXIDE 25 mmol/L (21-32); CHLORIDE 99 mmol/L (98-107); CREATININE 0.8 mg/dL (0.6-1.3); GLUCOSE 108 mg/dL (74-106); POTASSIUM 3.6 mmol/L (3.5-5.1); SODIUM SERUM 132 mmol/L (136-145); UREA NITROGEN, BLOOD 14 mg/dL (7-18)
[2023-08-29 12:00] LABS: INR 0.98 (0.91-1.10); PARTIAL THROMBOPLASTIN TIME 22.5 SEC (24.3-34.3); PROTHROMBIN TIME 10.1 SECS (9.2-11.1)
[2023-08-29 12:17] LABS: ALANINE AMINOTRANSFERASE 46 U/L (12-78); ALBUMIN 3.9 g/dL (3.4-5.0); ALKALINE PHOSPHATASE 85 U/L (46-116); ASPARTATE AMINOTRANSFERASE 43 U/L (15-37); BILIRUBIN,DIRECT 0.1 mg/dL (0.0-0.2); BILIRUBIN,TOTAL 0.5 mg/dL (0.2-1.0); TOTAL PROTEIN, SERUM 8.3 g/dL (6.4-8.2)
[2023-08-29 13:00] LABS: APPEARANCE,URINE Clear (CLEAR); BILIRUBIN,URINE Negative (NEGATIVE); BLOOD, URINE Small Ery/uL (NEGATIVE); COLOR,URINE YELLOW (YELLOW); KETONES,URINE Trace mg/dL (NEGATIVE); LEUKOCYTE ESTERASE ,URINE Trace (NEGATIVE); NITRITE, URINE Negative (NEGATIVE); PROTEIN,URINE Negative (NEGATIVE); UGLUCOSE Negative (NEGATIVE); UROBILINOGEN,URINE 0.2 EU/dL (0.2)
[2023-08-29 13:23] LABS: ADD URINE CULTURE YES; BACTERIA,URINE Rare /HPF (None Seen); MUCUS,URINE Few /LPF (None Seen); RBC,URINE 0-2 /HPF (0-2); SQUAMOUS EPITHELIAL CELL,UR Few /HPF (None Seen)
[2023-08-29] MEDS ORDERED: CEFTRIAXONE 1GM BAG (ER ONLY) 50 ML IV ONE (13:51)
[2023-08-29] MEDS ORDERED: ONDANSETRON HCL/PF 4 MG/2 ML VIAL IVP PRN (14:00)
[2023-08-29] MEDS: CEFTRIAXONE 1 G in IV D5W 50 ML IV ONE (14:12)
[2023-08-29] MEDS ORDERED: METRONIDAZOLE 500MG/ NS 100ML 100 ML IV ONE (14:18)
[2023-08-29] MEDS: FLAGYL/NS RTU 500 MG/100 ML PIGGYBACK IV ONE (14:32)
[2023-08-29] MEDS ORDERED: PANTOPRAZOLE 40 MG VIAL ONE (14:51)
[2023-08-29] MEDS: PANTOPRAZOLE 40 MG VIAL IV SCH (14:59)
[2023-08-29] MEDS: VANCOMYCIN 1 GM in IV D5W 250 ML IV ONE (14:59)
[2023-08-29 15:09] LABS: BAND % (MANUAL) 2 % (0.0-5.0); LYMPHOCYTES % (MANUAL) 10 % (16-48); MONOCYTES % (MANUAL) 10 % (0-11.0); NEUTROPHILS % (MANUAL) 78 (42-76); PLATELET ESTIMATE ADEQUATE
[2023-08-29 15:47] LABS: OCCULT BLOOD STOOL NEGATIVE (NEGATIVE)
[2023-08-29] MEDS: IV D5/0.45 NACL 1,000 ML IV PRN (18:48)
[2023-08-29 20:00] VITALS: BP 106/70; TEMP 97.9; O2SAT 95
[2023-08-30] VITALS: BP 113/70; TEMP 97.7; O2SAT 98
[2023-08-30 04:00] VITALS: BP 118/73; TEMP 98; O2SAT 98
[2023-08-30 07:03] LABS: BASOPHILS % (AUTO) 0.4 % (0.0-2.0); EOSINOPHILS # (AUTO) 0.2 K/uL (0.0-0.7); EOSINOPHILS % (AUTO) 1.5 % (0.0-6.0); HEMATOCRIT 34 % (33-45); HEMOGLOBIN 11.4 g/dL (11.5-14.8); LYMPHOCYTES # (AUTO) 2.2 K/uL (0.8-4.8); MEAN CORPUSCULAR HEMOGLOBIN 32 PG (26.0-33.0); MEAN CORPUSCULAR HGB CONC 34 g/dl (31.0-36.0); MEAN CORPUSCULAR VOLUME 95 fL (82-100); MONOCYTES # (AUTO) 0.9 K/uL (0.1-1.30); MONOCYTES % (AUTO) 7.9 % (2.0-12.0); NEUTROPHILS # (AUTO) 8.1 K/uL (1.8-8.9); NEUTROPHILS % (AUTO) 71.2 % (43.0-81.0); PLATELET COUNT (AUTO) 339 K/uL (150-450); RED BLOOD CELL COUNT(AUTO) 3.57 MIL/uL (4.0-5.2); RED CELL DISTRIBUTION WIDTH 13.3 % (11.5-15.0); WHITE BLOOD COUNT (AUTO) 11.3 K/uL (4.3-11.0)
[2023-08-30 07:17] LABS: CALCIUM, SERUM 8.3 mg/dL (8.5-10.1); CARBON DIOXIDE 22 mmol/L (21-32); CHLORIDE 100 mmol/L (98-107); CREATININE 0.5 mg/dL (0.6-1.3); GLUCOSE 83 mg/dL (74-106); MAGNESIUM 1.9 mg/dL (1.8-2.4); PHOSPHORUS 3.6 mg/dL (2.5-4.9); POTASSIUM 3.3 mmol/L (3.5-5.1); SODIUM SERUM 134 mmol/L (136-145); UREA NITROGEN, BLOOD 5 mg/dL (7-18)
[2023-08-30 08:00] VITALS: BP 131/79; TEMP 97.6; O2SAT 94
[2023-08-30] MEDS: ENSURE CLEAR 237 ML LIQUID (MIX BERRY) PO SCH (09:00)
[2023-08-30] MEDS: POTASSIUM CL. PREMIX PERIPHER. 50 ML IV SCH (10:33)
[2023-08-30] MEDS: Z GUARD REMEDY 4 OZ OINT TP PRN (11:17)
[2023-08-30] MEDS: Z GUARD REMEDY 4 OZ OINT TP SCH (11:17)
[2023-08-30 12:00] VITALS: BP 111/77; TEMP 97.4; O2SAT 97
[2023-08-30 16:00] VITALS: BP 115/71; TEMP 97.8; O2SAT 98
[2023-08-30] MEDS: IV D5 LR 1,000 ML IV PRN (18:18)
[2023-08-30 20:00] VITALS: BP 108/57; TEMP 97.5; O2SAT 98
[2023-08-31] VITALS: BP_SYST 108; BP_SYST 112; BP_DIAS 48; BP_DIAS 57; TEMP 98.6; O2SAT 100
[2023-08-31 04:00] VITALS: BP 134/79; TEMP 99.3; O2SAT 97
[2023-08-31 07:04] LABS: BASOPHILS % (AUTO) 0.4 % (0.0-2.0); EOSINOPHILS # (AUTO) 0.1 K/uL (0.0-0.7); EOSINOPHILS % (AUTO) 0.6 % (0.0-6.0); HEMATOCRIT 34 % (33-45); LYMPHOCYTES # (AUTO) 1.4 K/uL (0.8-4.8); LYMPHOCYTES % (AUTO) 15.4 % (20.0-44.0); MEAN CORPUSCULAR HEMOGLOBIN 33 PG (26.0-33.0); MEAN CORPUSCULAR HGB CONC 35 g/dl (31.0-36.0); MEAN CORPUSCULAR VOLUME 93 fL (82-100); MONOCYTES # (AUTO) 0.6 K/uL (0.1-1.30); NEUTROPHILS % (AUTO) 76.6 % (43.0-81.0); PLATELET COUNT (AUTO) 345 K/uL (150-450); RED BLOOD CELL COUNT(AUTO) 3.68 MIL/uL (4.0-5.2); RED CELL DISTRIBUTION WIDTH 13.5 % (11.5-15.0); WHITE BLOOD COUNT (AUTO) 9.2 K/uL (4.3-11.0)
[2023-08-31 07:23] LABS: THYROID STIMULATING HORMONE 1.638 uIU/mL (0.358-3.74); URIC ACID 3.6 mg/dL (2.6-7.2)
[2023-08-31 07:39] LABS: CALCIUM, SERUM 8.7 mg/dL (8.5-10.1); CREATININE 0.6 mg/dL (0.6-1.3); MAGNESIUM 1.8 mg/dL (1.8-2.4); PHOSPHORUS 3.1 mg/dL (2.5-4.9); POTASSIUM 3.3 mmol/L (3.5-5.1)
[2023-08-31 08:00] VITALS: BP 124/63; TEMP 97.7; O2SAT 97
[2023-08-31] MEDS: POTASSIUM CL. PREMIX PERIPHER. 50 ML IV SCH (10:10)
[2023-08-31 12:00] VITALS: BP 105/68; TEMP 97.6; O2SAT 97
[2023-08-31] MEDS ORDERED: LACT10SO3 PO (13:26)
[2023-08-31] MEDS ORDERED: SENN8.6T19 PO (13:26)
== END 2023-08-31 13:59 | disposition home or self-care (01) | DRG 378 ==
LOC: ER 11:14 → TELE1 15:54 → MEDSG1 08-31 09:55
DX: K62.5 Hemorrhage of anus and rectum (principal); E87.1 Hypo-osmolality and hyponatremia; N39.0 Urinary tract infection, site not specified; F02.83 Dementia in other diseases classified elsewhere, unspecified severity, with mood disturbance; N17.9 Acute kidney failure, unspecified; F02.84 Dementia in other diseases classified elsewhere, unspecified severity, with anxiety; K52.9 Noninfective gastroenteritis and colitis, unspecified; G30.9 Alzheimer's disease, unspecified; E78.5 Hyperlipidemia, unspecified; E87.6 Hypokalemia; F32.A Depression, unspecified; I10 Essential (primary) hypertension; I73.9 Peripheral vascular disease, unspecified; L60.3 Nail dystrophy; K62.89 Other specified diseases of anus and rectum; F41.9 Anxiety disorder, unspecified
CPT/HCPCS: 36415; 76856-TC; 80048-TC; 80076-TC; 81001; 82272-TC; 83735-TC; 84100-TC; 84443-TC; 84550-TC; 85025-TC; 85730-TC; 86850-TC; 87040-TC; A4223; C9113; G0378; J0696; J3370; J3480; J3490; J7042; J7060

== ENCOUNTER 2023-11-21 13:59 | Inpatient (IN) | payer MEDICARE, OTHER ==
[~2023-11-21] VITALS: Ht 147.3 cm; Wt 37.6 kg
[~2023-11-21 13:59] MED LIST changes: -DOCU100C36 PO; +LACT10SO3 PO; +SENN8.6T19 PO
[2023-11-21] MEDS ORDERED: FAMOTIDINE/PF INJ 20 MG/2 ML VIAL IV ONE (14:14)
[2023-11-21] MEDS ORDERED: ONDANSETRON HCL/PF 4 MG/2 ML VIAL ONE (14:14)
[2023-11-21] MEDS: IV NS 0.9% 500 ML BAG IV ONE (14:15)
[2023-11-21] MEDS: FAMOTIDINE/PF INJ 20 MG/2 ML VIAL IV ONE (14:15)
[2023-11-21] MEDS: ONDANSETRON HCL/PF 4 MG/2 ML VIAL IVP ONE (14:20)
[2023-11-21] MEDS ORDERED: DOCU-141 PO (14:33)
[2023-11-21] MEDS ORDERED: CEFTRIAXONE 1GM BAG (ER ONLY) 50 ML IV ONE (14:52)
[2023-11-21 14:55] LABS: BASOPHILS # (AUTO) 0.1 K/uL (0.0-0.2); BASOPHILS % (AUTO) 0.9 % (0.0-2.0); EOSINOPHILS # (AUTO) 0.1 K/uL (0.0-0.7); EOSINOPHILS % (AUTO) 0.8 % (0.0-6.0); HEMATOCRIT 38 % (33-45); HEMOGLOBIN 12.8 g/dL (11.5-14.8); LYMPHOCYTES # (AUTO) 2.4 K/uL (0.8-4.8); LYMPHOCYTES % (AUTO) 31.5 % (20.0-44.0); MEAN CORPUSCULAR HEMOGLOBIN 32 PG (26.0-33.0); MEAN CORPUSCULAR HGB CONC 34 g/dl (31.0-36.0); MEAN CORPUSCULAR VOLUME 94 fL (82-100); MONOCYTES # (AUTO) 0.6 K/uL (0.1-1.30); MONOCYTES % (AUTO) 8.6 % (2.0-12.0); NEUTROPHILS # (AUTO) 4.4 K/uL (1.8-8.9); NEUTROPHILS % (AUTO) 58.2 % (43.0-81.0); PLATELET COUNT (AUTO) 327 K/uL (150-450); RED CELL DISTRIBUTION WIDTH 13.3 % (11.5-15.0); WHITE BLOOD COUNT (AUTO) 7.6 K/uL (4.3-11.0)
[2023-11-21] MEDS: CEFTRIAXONE 1GM BAG (ER ONLY) 1 GM/50 ML PIGGYBACK IV ONE (15:10)
[2023-11-21 15:20] LABS: ALANINE AMINOTRANSFERASE 36 U/L (12-78); ALBUMIN 3.4 g/dL (3.4-5.0); ALKALINE PHOSPHATASE 75 U/L (46-116); ASPARTATE AMINOTRANSFERASE 47 U/L (15-37); BILIRUBIN,DIRECT 0.1 mg/dL (0.0-0.2); BILIRUBIN,TOTAL 0.3 mg/dL (0.2-1.0); CALCIUM, SERUM 9.4 mg/dL (8.5-10.1); CARBON DIOXIDE 25 mmol/L (21-32); CHLORIDE 98 mmol/L (98-107); CREATININE 0.8 mg/dL (0.6-1.3); GLUCOSE 135 mg/dL (74-106); LIPASE 28 U/L (16-77); POTASSIUM 3.7 mmol/L (3.5-5.1); SODIUM SERUM 133 mmol/L (136-145); TOTAL PROTEIN, SERUM 7.3 g/dL (6.4-8.2); UREA NITROGEN, BLOOD 8 mg/dL (7-18)
[2023-11-21 15:47] LABS: APPEARANCE,URINE CLEAR (CLEAR); BILIRUBIN,URINE NEGATIVE (NEGATIVE); BLOOD, URINE NEGATIVE Ery/uL (NEGATIVE); COLOR,URINE YELLOW (YELLOW); KETONES,URINE NEGATIVE (NEGATIVE); LEUKOCYTE ESTERASE ,URINE NEGATIVE (NEGATIVE); NITRITE, URINE NEGATIVE (NEGATIVE); PROTEIN,URINE NEGATIVE (NEGATIVE); UGLUCOSE NEGATIVE (NEGATIVE); UROBILINOGEN,URINE 0.2 EU/dL (0.2)
[2023-11-21] MEDS ORDERED: ACETAMINOPHEN 325 MG TABLET PO PRN (19:00)
[2023-11-21] MEDS ORDERED: ONDANSETRON HCL/PF 4 MG/2 ML VIAL IVP PRN (19:00)
[2023-11-21 20:00] VITALS: BP 108/60; TEMP 98.1; O2SAT 95
[2023-11-22 04:00] VITALS: BP 137/72; TEMP 98; O2SAT 96
[2023-11-22] MEDS: IV NS 0.9% 1,000 ML IV PRN (04:59)
[2023-11-22 07:25] LABS: BASOPHILS % (AUTO) 0.4 % (0.0-2.0); EOSINOPHILS % (AUTO) 0.1 % (0.0-6.0); HEMATOCRIT 32 % (33-45); HEMOGLOBIN 11.1 g/dL (11.5-14.8); LYMPHOCYTES # (AUTO) 1.2 K/uL (0.8-4.8); LYMPHOCYTES % (AUTO) 11.5 % (20.0-44.0); MEAN CORPUSCULAR HEMOGLOBIN 32 PG (26.0-33.0); MEAN CORPUSCULAR HGB CONC 34 g/dl (31.0-36.0); MEAN CORPUSCULAR VOLUME 94 fL (82-100); MONOCYTES # (AUTO) 0.6 K/uL (0.1-1.30); MONOCYTES % (AUTO) 5.4 % (2.0-12.0); NEUTROPHILS # (AUTO) 8.7 K/uL (1.8-8.9); NEUTROPHILS % (AUTO) 82.6 % (43.0-81.0); PLATELET COUNT (AUTO) 246 K/uL (150-450); RED BLOOD CELL COUNT(AUTO) 3.44 MIL/uL (4.0-5.2); RED CELL DISTRIBUTION WIDTH 13.2 % (11.5-15.0); WHITE BLOOD COUNT (AUTO) 10.5 K/uL (4.3-11.0)
[2023-11-22 07:47] LABS: CALCIUM, SERUM 8.7 mg/dL (8.5-10.1); CARBON DIOXIDE 20 mmol/L (21-32); CHLORIDE 100 mmol/L (98-107); CREATININE 0.5 mg/dL (0.6-1.3); GLUCOSE 82 mg/dL (74-106); MAGNESIUM 2.2 mg/dL (1.8-2.4); SODIUM SERUM 131 mmol/L (136-145)
[2023-11-22 08:00] VITALS: BP 113/64; TEMP 98.1; O2SAT 96
[2023-11-22 08:17] LABS: PHOSPHORUS 2.8 mg/dL (2.5-4.9); UREA NITROGEN, BLOOD 6 mg/dL (7-18)
[2023-11-22] MEDS ORDERED: CEFTRIAXONE 1 G in IV D5W 50 ML IV SCH (15:00)
== END 2023-11-22 15:40 | disposition home or self-care (01) | DRG 640 ==
LOC: ER 14:20 → MEDSG1 15:32
PROVIDERS: ADMIT Nurse Practitioner Acute Care; ATTEND Nurse Practitioner Acute Care
DX: E86.0 Dehydration (principal); G93.41 Metabolic encephalopathy; E87.1 Hypo-osmolality and hyponatremia; K59.00 Constipation, unspecified; Z87.440 Personal history of urinary (tract) infections; Z90.49 Acquired absence of other specified parts of digestive tract; I10 Essential (primary) hypertension; F03.90 Unspecified dementia, unspecified severity, without behavioral disturbance, psychotic disturbance, mood disturbance, and anxiety
CPT/HCPCS: 36415; 71045-TC; 80048-TC; 80076-TC; 83690-TC; 83735-TC; 84100-TC; 84484-TC; 85025-TC; 87086-TC; A4223; G0378; J0696; J2405; J3490; J7030; J7040; J7060

== ENCOUNTER 2024-02-01 12:29 | Emergency (ER) | payer MEDICARE, OTHER ==
[~2024-02-01] VITALS: Ht 149.9 cm; Wt 37.2 kg
[~2024-02-01 12:29] MED LIST changes: +DOCU-141 PO; -LACT10SO3 PO; -SENN8.6T19 PO
[2024-02-01 15:27] VITALS: BP 137/57; TEMP 98.1; O2SAT 99
== END 2024-02-01 15:28 | disposition home or self-care (01) ==
LOC: ER 12:35
DX: M62.461 Contracture of muscle, right lower leg (principal); F03.90 Unspecified dementia, unspecified severity, without behavioral disturbance, psychotic disturbance, mood disturbance, and anxiety; I10 Essential (primary) hypertension; Z86.79 Personal history of other diseases of the circulatory system; Z86.59 Personal history of other mental and behavioral disorders; Z90.49 Acquired absence of other specified parts of digestive tract
CPT/HCPCS: 73502; 73560-TC; 93971-TC

== ENCOUNTER 2024-11-23 12:55 | Inpatient (IN) | payer MEDICARE, OTHER ==
[~2024-11-23] VITALS: Ht 142.2 cm; Wt 36.3 kg
[2024-11-23 13:29] LABS: PLATELET COUNT (AUTO) 491 K/uL (150-450); RED BLOOD CELL COUNT(AUTO) 3.66 MIL/uL (4.0-5.2); RED CELL DISTRIBUTION WIDTH 14.1 % (11.5-15.0); WHITE BLOOD COUNT (AUTO) 9.4 K/uL (4.3-11.0)
[2024-11-23 13:42] LABS: CALCIUM, SERUM 9.0 mg/dL (8.5-10.1); CREATININE 0.9 mg/dL (0.6-1.3); SODIUM SERUM 134 mmol/L (136-145); UREA NITROGEN, BLOOD 25 mg/dL (7-18)
[2024-11-23 13:47] LABS: ASPARTATE AMINOTRANSFERASE 65 U/L (15-37); TOTAL PROTEIN, SERUM 7.3 g/dL (6.4-8.2)
[2024-11-23 13:54] LABS: INR 1.04 (0.91-1.10)
[2024-11-23 14:03] LABS: LACTIC ACID 9.3 mmol/L (0.4-2.0)
[2024-11-23 14:15] LABS: APPEARANCE,URINE CLEAR (CLEAR); BLOOD, URINE TRACE-INTA Ery/uL (NEGATIVE); LEUKOCYTE ESTERASE ,URINE NEGATIVE (NEGATIVE); NITRITE, URINE NEGATIVE (NEGATIVE); UGLUCOSE NEGATIVE (NEGATIVE)
[2024-11-23 14:26] LABS: ADD URINE CULTURE NO; SQUAMOUS EPITHELIAL CELL,UR 0-2 /HPF (None Seen)
[2024-11-23] MEDS ORDERED: IV NS 0.9% 250 ML IV ONE (14:29)
[2024-11-23] MEDS ORDERED: IOHEXOL-300 100 ML VIAL IV ONE (14:29)
[2024-11-23] MEDS: IV NS 0.9% 1,000 ML BAG IV ONE (14:50)
[2024-11-23] MEDS ORDERED: MAG HYDROX/AL HYDROX/SIMETH 30 ML UDC PO PRN (15:30)
[2024-11-23] MEDS ORDERED: MAGNESIUM HYDROXIDE 30 ML UDC PO PRN (15:30)
[2024-11-23] MEDS ORDERED: ACETAMINOPHEN 325 MG TABLET PO PRN (15:30)
[2024-11-23] MEDS ORDERED: ONDANSETRON HCL/PF 4 MG/2 ML VIAL IVP PRN (15:30)
[2024-11-23] MEDS ORDERED: APIX2.5T PO (15:59)
[2024-11-23] MEDS ORDERED: LEVO25TA9 PO (15:59)
[2024-11-23 17:00] VITALS: BP 138/76; TEMP 97.9; O2SAT 100
[2024-11-23 18:49] VITALS: BP 138/76; TEMP 98.2; O2SAT 98
[2024-11-23] MEDS: IV NS 0.9% 1,000 ML IV PRN (19:54)
[2024-11-23 20:00] VITALS: BP 102/64; TEMP 97.2; O2SAT 98
[2024-11-23 23:55] VITALS: BP 141/74; TEMP 97.7; O2SAT 98
[2024-11-24 04:00] VITALS: BP 160/75; TEMP 98.1; O2SAT 98
[2024-11-24 07:19] LABS: PLATELET COUNT (AUTO) 429 K/uL (150-450); RED BLOOD CELL COUNT(AUTO) 3.17 MIL/uL (4.0-5.2); RED CELL DISTRIBUTION WIDTH 13.9 % (11.5-15.0); WHITE BLOOD COUNT (AUTO) 15.6 K/uL (4.3-11.0)
[2024-11-24 07:30] VITALS: BP 154/89; TEMP 98.8; O2SAT 96
[2024-11-24 10:17] LABS: CALCIUM, SERUM 8.0 mg/dL (8.5-10.1); CREATININE 0.5 mg/dL (0.6-1.3); PHOSPHORUS 2.8 mg/dL (2.5-4.9); SODIUM SERUM 142.0 mmol/L (136-145); UREA NITROGEN, BLOOD 20.0 mg/dL (7-18)
[2024-11-24] MEDS: POTASSIUM CL. PREMIX PERIPHER. 50 ML IV SCH (11:45)
[2024-11-24 15:23] LABS: CALCIUM, SERUM 8.0 mg/dL (8.5-10.1); CREATININE 0.5 mg/dL (0.6-1.3); SODIUM SERUM 140.0 mmol/L (136-145); UREA NITROGEN, BLOOD 20.0 mg/dL (7-18)
[2024-11-24 16:28] VITALS: BP 155/82; TEMP 98.1; O2SAT 98
[2024-11-24 16:28] LABS: PHOSPHORUS 2.9 mg/dL (2.5-4.9)
[2024-11-24 20:00] VITALS: BP 152/50; TEMP 98.1; O2SAT 98
[2024-11-25] MEDS ORDERED: DOCUSATE SODIUM 100 MG CAPSULE PO SCH (07:00)
[2024-11-25] MEDS ORDERED: POLYETHYLENE GLYCOL 3350 17 GM POWD.PACK PO PRN (07:00)
[2024-11-25 07:10] LABS: POTASSIUM RNDM,URINE 50 mmol/L (25-125); URINE SODIUM, RANDOM 48 mmol/l (40-220)
[2024-11-25 07:15] LABS: ASPARTATE AMINOTRANSFERASE 29.0 U/L (15-37); CALCIUM, SERUM 7.8 mg/dL (8.5-10.1); CREATININE 0.4 mg/dL (0.6-1.3); PHOSPHORUS 1.7 mg/dL (2.5-4.9); TOTAL PROTEIN, SERUM 5.7 g/dL (6.4-8.2); UREA NITROGEN, BLOOD 15.0 mg/dL (7-18)
[2024-11-25 07:30] VITALS: BP 144/71; TEMP 97.7; O2SAT 97
[2024-11-25 07:49] LABS: PLATELET COUNT (AUTO) 364 K/uL (150-450); RED BLOOD CELL COUNT(AUTO) 2.91 MIL/uL (4.0-5.2); RED CELL DISTRIBUTION WIDTH 14.4 % (11.5-15.0); WHITE BLOOD COUNT (AUTO) 10.0 K/uL (4.3-11.0)
[2024-11-25 08:21] LABS: SODIUM SERUM 139.0 mmol/L (136-145)
[2024-11-25] MEDS: DOCUSATE SODIUM 100 MG CAPSULE PO SCH (08:54)
[2024-11-25] MEDS: LEVOTHYROXINE SODIUM 25 MCG TABLET PO SCH (08:55)
[2024-11-25] MEDS: VENLAFAXINE XR 75 MG CAP.SR.24H PO SCH (08:55)
[2024-11-25] MEDS: ATENOLOL 25 MG TABLET PO SCH (08:55)
[2024-11-25] MEDS: APIXABAN 2.5 MG TABLET PO SCH (08:56)
[2024-11-25] MEDS: POTASSIUM CHLORIDE 20 MEQ TAB.PRT.SR PO ONE (08:59)
[2024-11-25] MEDS: Z GUARD REMEDY 4 OZ OINT TP PRN (09:02)
[2024-11-25] MEDS: SENNOSIDES 8.6 MG TABLET PO SCH (09:04)
[2024-11-25] MEDS: THERAHONEY GEL 1.5 OZ TUBE TP SCH (09:14)
[2024-11-25 15:19] LABS: CALCIUM, SERUM 8.1 mg/dL (8.5-10.1); CREATININE 0.5 mg/dL (0.6-1.3); SODIUM SERUM 140.0 mmol/L (136-145); UREA NITROGEN, BLOOD 12.0 mg/dL (7-18)
[2024-11-25] MEDS: K PHOS NEUTRAL 250 MG TABLET PO ONE (15:41)
[2024-11-25] MEDS: POTASSIUM PHOSPHATE MM 7.5 MMOL in IV NS 0.9% 100 ML IV SCH (16:41)
[2024-11-25 20:00] VITALS: BP 134/64; TEMP 97.9; O2SAT 96
[2024-11-26 05:08] LABS: FOLIC ACID 4.1 ng/mL (>3.0)
[2024-11-26 07:41] LABS: CALCIUM, SERUM 8.3 mg/dL (8.5-10.1); CREATININE 0.4 mg/dL (0.6-1.3); PHOSPHORUS 3.1 mg/dL (2.5-4.9); SODIUM SERUM 137.0 mmol/L (136-145); UREA NITROGEN, BLOOD 11.0 mg/dL (7-18)
[2024-11-26 08:00] VITALS: BP 159/66; TEMP 97.7; O2SAT 98
[2024-11-26 16:00] VITALS: BP 164/86; TEMP 98.1; O2SAT 99
[2024-11-26 20:00] VITALS: BP 157/81; TEMP 98.2; O2SAT 97
[2024-11-27 06:51] LABS: CALCIUM, SERUM 8.2 mg/dL (8.5-10.1); CREATININE 0.3 mg/dL (0.6-1.3); SODIUM SERUM 134.0 mmol/L (136-145); UREA NITROGEN, BLOOD 8.0 mg/dL (7-18)
[2024-11-27 08:00] VITALS: BP 144/79; TEMP 97.7; TEMP 97.9; O2SAT 100
[2024-11-27] MEDS ORDERED: POTASSIUM CHLORIDE 20 MEQ TAB.PRT.SR PO SCH (09:30)
[2024-11-27] MEDS: DOCUSATE SODIUM LIQ 100 MG/10 ML UDC PO SCH (10:45)
[2024-11-27] MEDS: POTASSIUM CL. PREMIX PERIPHER. 50 ML IV SCH (12:31)
[2024-11-27 14:00] VITALS: BP 160/78; TEMP 97.7; O2SAT 100
[2024-11-27 16:00] VITALS: BP 160/78; TEMP 97.7; O2SAT 100
[2024-11-27 16:18] VITALS: BP 160/78; TEMP 97.7; O2SAT 100
[2024-11-27 16:31] LABS: LACTIC ACID 2.3 mmol/L (0.4-2.0)
[2024-11-27 19:28] LABS: LACTIC ACID REFLEX 1.6 mmol/L (0.4-1.9)
[2024-11-27 20:00] VITALS: BP 168/84; TEMP 97.9; O2SAT 98
[2024-11-28 07:15] LABS: CALCIUM, SERUM 7.9 mg/dL (8.5-10.1); CREATININE 0.4 mg/dL (0.6-1.3); SODIUM SERUM 137.0 mmol/L (136-145); UREA NITROGEN, BLOOD 9.0 mg/dL (7-18)
[2024-11-28 08:00] VITALS: BP 130/65; TEMP 97.7; O2SAT 91
[2024-11-28] MEDS: POTASSIUM CHLORIDE 20 MEQ TAB.PRT.SR PO SCH (08:25)
[2024-11-28 08:26] VITALS: BP 130/65
[2024-11-28] MEDS ORDERED: IV NS 0.9% 1,000 ML IV PRN (09:42)
[2024-11-28] MEDS ORDERED: POTASSIUM CHLORIDE 20 MEQ TAB.PRT.SR PO ONE (10:00)
[2024-11-28] MEDS ORDERED: POTA-88 PO (10:09)
[2024-11-29 17:07] LABS: METHYLMALONIC ACID 200.0 nmol/L (0-378)
[2024-11-30 11:07] LABS: VITAMIN B1 THIAMINE,WB 102.4 nmol/L (66.5-200.0)
== END 2024-11-28 15:39 | disposition home health service (06) | DRG 640 ==
LOC: ER 12:57 → TELE 15:07 → MED 11-24 00:24
PROVIDERS: ADMIT Internal Medicine; ATTEND Internal Medicine
DX: E86.0 Dehydration (principal); G93.41 Metabolic encephalopathy; L89.154 Pressure ulcer of sacral region, stage 4; Z68.1 Body mass index [BMI] 19.9 or less, adult; F03.93 Unspecified dementia, unspecified severity, with mood disturbance; R65.10 Systemic inflammatory response syndrome (SIRS) of non-infectious origin without acute organ dysfunction; E44.0 Moderate protein-calorie malnutrition; I96 Gangrene, not elsewhere classified; R62.7 Adult failure to thrive; E87.20 Acidosis, unspecified; E87.1 Hypo-osmolality and hyponatremia; R41.82 Altered mental status, unspecified; Z90.49 Acquired absence of other specified parts of digestive tract; I10 Essential (primary) hypertension; Z79.01 Long term (current) use of anticoagulants; Z79.899 Other long term (current) drug therapy; Z79.890 Hormone replacement therapy; R79.89 Other specified abnormal findings of blood chemistry; F32.9 Major depressive disorder, single episode, unspecified; L89.106 Pressure-induced deep tissue damage of unspecified part of back; L98.9 Disorder of the skin and subcutaneous tissue, unspecified; E78.5 Hyperlipidemia, unspecified; K59.00 Constipation, unspecified; E87.6 Hypokalemia; D63.8 Anemia in other chronic diseases classified elsewhere; E03.9 Hypothyroidism, unspecified; E05.90 Thyrotoxicosis, unspecified without thyrotoxic crisis or storm; K83.8 Other specified diseases of biliary tract; L97.529 Non-pressure chronic ulcer of other part of left foot with unspecified severity; Z74.01 Bed confinement status; M62.462 Contracture of muscle, left lower leg; M62.461 Contracture of muscle, right lower leg
CPT/HCPCS: 36415; 70450-TC; 71045-TC; 71260-TC; 80048-TC; 80053-TC; 80076-TC; 81001; 82247-TC; 82248-TC; 82436-TC; 82607-TC; 83605-TC; 83735-TC; 83921; 83935-TC; 84100-TC; 84132-TC; 84133-TC; 84300-TC; 84425; 84443-TC; 84484-TC; 84550-TC; 85025-TC; 85730-TC; 87040-TC; 92526; 92611-TC; A4223; A6253; G0378; J3480; J3490; J7030; J7050; Q9967

== ENCOUNTER 2024-12-26 09:26 | Emergency (ER) | payer MEDICARE, OTHER ==
[~2024-12-26] VITALS: Ht 144.8 cm; Wt 32.2 kg
[~2024-12-26 09:26] MED LIST changes: +APIX2.5T PO; +LEVO25TA9 PO; +POTA-88 PO
[2024-12-26] MEDS ORDERED: EPINEPHRINE (1:10,000) SYRINGE 1 MG/10 ML DISP.SYRIN IVP ONE (14:23)
[2024-12-26] MEDS ORDERED: ACET325C7 PO (18:24)
[2024-12-26 19:14] VITALS: BP 0/0; TEMP 97.5; O2SAT 0
== END 2024-12-26 19:14 ==
LOC: ER 09:32
DX: I46.9 Cardiac arrest, cause unspecified (principal); F03.90 Unspecified dementia, unspecified severity, without behavioral disturbance, psychotic disturbance, mood disturbance, and anxiety; Z79.01 Long term (current) use of anticoagulants; Z79.890 Hormone replacement therapy; Z79.899 Other long term (current) drug therapy
CPT/HCPCS: 99285; 92950; 31500; J0169